=== PATIENT | male | born 1990 | race Hispanic/Latino ===

== ENCOUNTER 2023-03-18 21:09 | Emergency (ER) | payer BC ==
[2023-03-18 21:57] LABS: Absolute Lymphocytes (CBC) 2.9 K/uL (0.7-4.9); Hematocrit 41.7 % (39.6-49.0); Lymphocytes % 37.6 % (15.3-44.8); MPV 8.1 fL (7.6-11.3); RBC Red Blood Cell Count 5.08 M/uL (4.33-5.43)
[2023-03-18 22:10] LABS: Potassium 3.5 mEq/L (3.5-5.1)
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
[2023-03-18] MEDS ORDERED: TETANUS & DIPHTHERIA TOX,ADULT 0.5 ML VIAL ONE (23:36)
[2023-03-19] MEDS ORDERED: ONDANSETRON 4 MG/2 ML VIAL ONE (00:44)
[2023-03-19] MEDS ORDERED: MORPHINE 4 MG/ML SYR ONE ×2 (00:44→01:38)
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
[2023-03-19 03:00] VITALS: TEMP 98.2
[2023-03-19 03:06] VITALS: O2SAT 100
[2023-03-19 03:19] VITALS: BP 125/78
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
== END 2023-03-19 02:28 | disposition home or self-care (01) ==
LOC: ER 21:09
PROC: 0HQ1XZZ Repair Face Skin, External Approach (ICD-10-PCS; principal; 2023-03-19)
PROC: 0HQLXZZ Repair Left Lower Leg Skin, External Approach (ICD-10-PCS; 2023-03-19)
DX: S01.81XA Laceration without foreign body of other part of head, initial encounter (principal); S81.812A Laceration without foreign body, left lower leg, initial encounter; S60.512A Abrasion of left hand, initial encounter; S80.812A Abrasion, left lower leg, initial encounter; Z23 Encounter for immunization
CPT/HCPCS: 85025; 80048; 36415; 70450; 72125; 71260; 70486; 76377; 74177; 73130 ×2; 73630; 73562; 90471; 90714; 96375; 96374; 99285; 12011; 12002; Q9967; J2405